=== PATIENT | female | born 1995 | race American Indian/Alaskan Native ===

== ENCOUNTER 2020-03-13 22:34 | Emergency (ER) | payer OTHER ==
[2020-03-13 23:42] VITALS: BP 130/69
[2020-03-14 00:08] LABS: Basophils % (Auto) 0.4 % (0.0-1.8); Eosinophils # (Auto) 0.1 K/mm3 (0.0-0.4); Eosinophils % (Auto) 1.9 % (0.0-4.3); Hematocrit 38.7 % (30.3-42.9); Hemoglobin 13.5 gm/dl (10.1-14.3); Lymphocytes # (Auto) 3.4 K/mm3 (1.2-5.4); Lymphocytes % (Auto) 44.5 % (13.4-35.0); Mean Corpuscular HGB Conc 35 % (30-34); Mean Corpuscular Volume 78 fl (79-97); Monocytes # (Auto) 0.4 K/mm3 (0.0-0.8); Monocytes % (Auto) 5.5 % (0.0-7.3); Platelet Count 292 K/mm3 (140-440); Red Blood Count 4.94 M/mm3 (3.65-5.03); Red Cell Distribution Width 15.2 % (13.2-15.2)
[2020-03-14 00:36] LABS: Alanine Aminotransferase 9 units/L (7-56); Albumin 4.3 g/dL (3.9-5); BUN/Creatinine Ratio 10; Blood Urea Nitrogen 8 mg/dL (7-17); Calcium 9.8 mg/dL (8.4-10.2); Hemolysis Index 95
[2020-03-14] MEDS ORDERED: ACETAMINOPHEN 500 MG TAB PO ONE (01:00)
[2020-03-14] MEDS ORDERED: FAMOTIDINE 20 MG TAB PO ONE (01:01)
[2020-03-14] MEDS ORDERED: ONDANSETRON 4 MG ODT TAB PO ONE (01:01)
[2020-03-14] MEDS ORDERED: DICYCLOMINE 20 MG TAB PO ONE (01:01)
[2020-03-14 01:58] LABS: Bacteria,Urine 1+ /HPF (Negative); Bilirubin,Urine NEG (Negative); Blood,Urine NEG (Negative); Color,Urine Yellow (Yellow); Mucus,Urine 2+ /HPF; Protein,Urine <15 mg/dL mg/dL (Negative)
--- NOTE | 2020-03-14 03:55 | Cat Scan Report ---
CT abdomen pelvis w con INDICATION / CLINICAL INFORMATION: Pt complains of R.L.Q. abdominal pain. TECHNIQUE: Axial CT imaging of abdomen and pelvis was obtained with IV contrast. Coronal and sagittal reformatte d imaging obtained and reviewed. All CT scans at this location are performed using CT dose reduction for ALARA by means of automated exposure control. COMPARISON: None available. FINDINGS: CT abdomen with contrast demonstrates normal appearance of the liver, spleen, pancreas, kidneys, adre nal glands, and gallbladder. No biliary dilatation. CT pelvis with contrast demonstrates normal appearance of the appendix. The uterus is enlarged. No fo elena uterine mass identified. No pelvic mass, free fluid, or focal inflammatory change noted. GI tract is grossly unremarkable. Visualized lung bases are clear. No acute significant skeletal abnormality noted. IMPRESSION: 1. No acute finding within the abdomen or pelvis. No evidence for appendicitis or right adnexal mass. 2. Uterus is mildly enlarged Signer Name: Coretta Lyons MD Signed: 03/14/2020 3:51 AM Workstation Name: [id number]
[2020-03-14] MEDS ORDERED: LIDOCAINE-MPF (1%) 10 MG/1 ML VIAL 5 ML INFILTRATI ONE (04:49)
[2020-03-14] MEDS ORDERED: AZITHROMYCIN 250 MG TAB PO ONE (04:49)
--- NOTE | 2020-03-14 04:54 | Emergency Department Report ---
ED Female HPI - General Chief complaint: Urogenital-Female Stated complaint: VAGINAL/ABD PAIN Source: patient Mode of arrival: Ambulatory Limitations: No Limitations - History of Present Illness Initial comments: Patient is a A0 24-year-old -[place] female with no past medical history presents to the ED with complaint of acute onset persistent diffuse lower abdominal pain with dysuria, urinary frequency and urgency and vaginal discharge for the last 3 days. Patient states that she suspects that she may have been exposed to STD after having unprotected sexual intercourse. Patient denies dizziness, syncope, fever, chills, nausea, vomiting, vaginal bleeding, low back pain, chest pain, shortness of breath, sore throat, cough, dyspareunia or diarrhea. MD Complaint: vaginal discharge, dysuria, pelvic pain, possible STD, other (Urinary frequency and urgency) -: days(s) (3) Location: suprapubic, other (vaginal) Radiation: LLQ, RLQ Severity: severe Severity scale (0 -10): 7 Quality: cramping, sharp Consistency: constant Improves with: none Worsens with: intercourse, movement Are you Now?: No Last Menstrual Period: 02/14/20 EDC: 11/20/20 Associated Symptoms: denies other symptoms, vaginal discharge, abdominal pain (Suprapubic pain), dysuria. denies: vaginal bleeding, nausea/vomiting, fever/ch ills, hematuria, rash, seizure, shortness of breath, syncope, weakness, other - Related Data Sexually active: Yes : 3 Para: 3 A: 0 Previous Rx's Medication Instructions Recorded Last Taken Type Ibuprofen [Motrin] 600 mg PO Q8H PRN #24 tablet 03/14/20 Unknown Rx Ondansetron [Zofran Odt] 4 mg PO Q6H PRN #15 tab.rapdis 03/14/20 Unknown Rx cephALEXin [Keflex] 500 mg PO Q8HR #30 cap 03/14/20 Unknown Rx Allergies Allergy/AdvReac Type Severity Reaction Status Date / Time hydrocodone AdvReac Shortness Verified 03/13/20 23:40 of Breath ED Review of Systems ROS: Stated complaint: VAGINAL/ABD PAIN Other details as noted in HPI Constitutional: denies: chills, fever Eyes: denies: eye pain, eye discharge, vision change ENT: denies: ear pain, throat pain Respiratory: denies: cough, shortness of breath, wheezing Cardiovascular: denies: chest pain, palpitations Endocrine: no symptoms reported Gastrointestinal: abdominal pain. denies: nausea, vomiting, diarrhea Genitourinary: urgency, dysuria, frequency, discharge Musculoskeletal: denies: back pain, joint swelling, arthralgia Skin: denies: rash, lesions Neurological: denies: headache, weakness, paresthesias Psychiatric: denies: anxiety, depression Hematological/Lymphatic: denies: easy bleeding, easy bruising ED Past Medical Hx - Past Medical History Previous Medical History?: No - Surgical History Past Surgical History?: No - Social History Smoking Status: Never Smoker - Medications Home Medications: Home Medications Medication Instructions Recorded Confirmed Last Taken Type Ibuprofen [Motrin] 600 mg PO Q8H PRN #24 tablet 03/14/20 Unknown Rx Ondansetron [Zofran Odt] 4 mg PO Q6H PRN #15 tab.rapdis 03/14/20 Unknown Rx cephALEXin [Keflex] 500 mg PO Q8HR #30 cap 03/14/20 Unknown Rx ED Physical Exam - General Limitations: No Limitations General appearance: alert, in no apparent distress - Head Head exam: Present: atraumatic, normocephalic, normal inspection - Eye Eye exam: Present: normal appearance, PERRL, EOMI Pupils: Present: normal accommodation - ENT ENT exam: Present: normal exam, normal orophraynx, mucous membranes moist, TM's normal bilaterally, normal external ear exam - Neck Neck exam: Present: normal inspection, full ROM - Respiratory Respiratory exam: Present: normal lung sounds bilaterally. Absent: respiratory distress, wheezes, rales, stridor, chest wall tenderness, accessory muscle use, decreased breath sounds, prolonged expiratory - Cardiovascular Cardiovascular Exam: Present: normal rhythm, bradycardia, normal heart sounds. Absent: systolic murmur, diastolic murmur, rubs, gallop - GI/Abdominal GI/Abdominal exam: Present: soft, tenderness (Palpable mild suprapubic and right lower quadrant tenderness), normal bowel sounds. Absent: guarding, rebound, hyperactive bowel sounds, organomegaly, mass - Bi-manual exam: Present: other (Pelvic exam deferred, patient preferred self swabbing) - Extremities Exam Extremities exam: Present: normal inspection, full ROM, normal capillary refill - Back Exam Back exam: Present: normal inspection, full ROM. Absent: tenderness, CVA tenderness (R), CVA tenderness (L), muscle spasm, paraspinal tenderness, vertebral tenderness - Neurological Exam Neurological exam: Present: alert, oriented X3, CN II-XII intact, normal gait, reflexes normal - Psychiatric Psychiatric exam: Present: normal affect, normal mood - Skin Skin exam: Present: warm, dry, intact, normal color. Absent: rash ED Course Vital Signs 03/13/20 23:41 Temperature 98.3 F Pulse Rate 51 L Respiratory 14 Rate Blood Pressure 130/69 [Right] O2 Sat by Pulse 99 Oximetry ED Medical Decision Making - Lab Data Result diagrams: 03/13/20 23:52 03/13/20 23:52 - Radiology Data Radiology results: report reviewed, image reviewed Findings [place] [id number] Cat Scan Report Signed Patient: KISHAN ZENDEJAS MR#: [id number] : 1995 Acct:[id number] Age/Sex: 24 / F ADM Date: 03/13/20 Loc: ED Attending Dr: Ordering Physician: CAROLE LALA Date of Service: 03/14/20 Procedure(s): CT abdomen pelvis w con Accession Number(s): [id number] cc: CAROLE LALA CT abdomen pelvis w con INDICATION / CLINICAL INFORMATION: Pt complains of R.L.Q. abdominal pain. TECHNIQUE: Axial CT imaging of abdomen and pelvis was obtained with IV contrast. Coronal and sagittal reformatted imaging obtained and reviewed. All CT scans at this location are performed using CT dose reduction for ALARA by means of automated exposure control. COMPARISON: None available. FINDINGS: CT abdomen with contrast demonstrates normal appearance of the liver, spleen, pancreas, kidneys, adrenal glands, and gallbladder. No biliary dilatation. CT pelvis with contrast demonstrates normal appearance of the appendix. The uterus is enlarged. No focal uterine mass identified. No pelvic mass, free fluid, or focal inflammatory change noted. GI tract is grossly unremarkable. Visualized lung bases are clear. No acute significant skeletal abnormality noted. IMPRESSION: 1. No acute finding within the abdomen or pelvis. No evidence for appendicitis or right adnexal mass. 2. Uterus is mildly enlarged Signer Name: Coretta Lyons MD Signed: 03/14/2020 3:51 AM Workstation Name: [id number] Transcribed By: Dictated By: Coretta Lyons MD Electronically Authenticated By: Coretta Lyons MD Signed Date/Time: 03/14/20350 DD/ 034 TD/TT: - Medical Decision Making This is a A0 24-year-old -[place] female with no past medical history presents to the ED with complaint of acute onset persistent diffuse lower abdominal pain with dysuria, urinary frequency and urgency and vaginal discharge for the last 3 days. Patient states that she suspects that she may have been exposed to STD after having unprotected sexual intercourse. In the ED, patient is alert and oriented x3 and is not in distress. Patient was treated in the ED for pain and also given antiemetics. Lab test results were reviewed and are all nonactionable except for urinalysis that showed significant urinary tract infection. The wet prep test was negative for trichomonas, Gardnerella vaginalis or Shasha. Chlamydia and gonorrhea test results are pending. Patient was empirically treated in the ED for gonorrhea and chlamydia and also UTI as well. Abdomen pelvis CT scan with contrast showed no acute abnormalities in the abdomen and pelvis. Patient was discharged home on medications for pain, antibiotics for UTI and antiemetics. Patient was advised to follow-up with her primary care physician in 5 to 7 days for reevaluation or return to the ED immediately if symptoms get worse. - Differential Diagnosis Appendicitis; kidney stone; ovarian cyst; UTI; PID; STD Critical care attestation.: If time is entered above; I have spent that time in minutes in the direct care of this critically ill patient, excluding procedure time. ED Disposition Clinical Impression: Acute bilateral lower abdominal pain, Acute urinary tract infection, Potential exposure to STD Disposition: DC-01 TO HOME OR SELFCARE Is pt being admited?: No Does the pt Need Aspirin: No Condition: Stable Instructions: Abdominal Pain, Adult, [id number], Urinary Tract Infection, Adult, [id number], Safe Sex Additional Instructions: All lab test results are unremarkable except for urinalysis that showed significant urinary tract infection. Abdomen pelvis CT scan with contrast showed no acute abnormalities. Therefore take medications with food, drink plenty of fluids and follow-up with your primary care physician in 5 to 7 days for reevaluation. Observe strict safe sexual practices. Return to the ED immediately if symptoms get worse. Prescriptions: cephALEXin [Keflex] 500 mg PO Q8HR #30 cap Ibuprofen [Motrin] 600 mg PO Q8H PRN #24 tablet PRN Reason: Pain Ondansetron [Zofran Odt] 4 mg PO Q6H PRN #15 tab.rapdis PRN Reason: Nausea Referrals: PRIMARY CARE, [Primary Care Provider] - 7-10 days [facility] [Provider Group] - 7-10 days Forms: Work/School Release Form(ED) Time of Disposition: 04:57 Print Language: ECUADOREAN
== END 2020-03-14 05:45 | disposition home or self-care (01) ==
LOC: ED 22:34
DX: N39.0 Urinary tract infection, site not specified (principal); R10.31 Right lower quadrant pain; R10.32 Left lower quadrant pain; Z20.2 Contact with and (suspected) exposure to infections with a predominantly sexual mode of transmission; Z79.1 Long term (current) use of non-steroidal anti-inflammatories (NSAID); Z79.899 Other long term (current) drug therapy; Z88.8 Allergy status to other drugs, medicaments and biological substances
CPT/HCPCS: 36415; 74177; 80053; 81001; 84703; 85025; 87086; 87210; 87591; 96372; 99284; J0696; Q9967; Q0162

== ENCOUNTER 2020-05-09 21:44 | Emergency (ER) | payer OTHER ==
[2020-05-09 21:52] VITALS: BP 148/74
--- NOTE | 2020-05-09 21:53 | Emergency Department Report ---
Blank Doc - Documentation Documentation: 24-year-old [place] female just emerged from complaining of a 9-day history of not improving vaginal bleeding spontaneously starting from unknown etiology associated with cramping soaking through several tampons in the course of the day but reports no trauma no fever chills sweats no nausea vomiting she reports no . The bleeding is occurring between menses and for some she is experience this type of episode This initial assessment/diagnostic orders/clinical plan/treatment(s) is/are subject to change based on patients health status, clinical progression and re- assessment by fellow clinical providers in the ED. Further treatment and workup at subsequent clinical providers discretion. Patient/guardian urged not to elope from the ED as their condition may be serious if not clinically assessed and managed. Initial orders include: Obtain CBC test and urine urinalysis depending on the outcome of the laboratory findings may move forward with an ultrasound
[2020-05-09 22:08] LABS: Basophils % (Auto) 0.3 % (0.0-1.8); Eosinophils # (Auto) 0.1 K/mm3 (0.0-0.4); Eosinophils % (Auto) 1.3 % (0.0-4.3); Hematocrit 30.1 % (30.3-42.9); Hemoglobin 10.4 gm/dl (10.1-14.3); Lymphocytes # (Auto) 3.6 K/mm3 (1.2-5.4); Lymphocytes % (Auto) 40.3 % (13.4-35.0); Mean Corpuscular HGB Conc 34 % (30-34); Mean Corpuscular Volume 76 fl (79-97); Monocytes # (Auto) 0.6 K/mm3 (0.0-0.8); Monocytes % (Auto) 6.6 % (0.0-7.3); Platelet Count 244 K/mm3 (140-440); Red Blood Count 3.97 M/mm3 (3.65-5.03); Red Cell Distribution Width 16.7 % (13.2-15.2)
[2020-05-10 00:17] LABS: Bilirubin,Urine NEG (Negative); Blood,Urine LG (Negative); Color,Urine Yellow (Yellow); Mucus,Urine 1+ /HPF
== END 2020-05-09 21:56 | disposition home or self-care (01) ==
LOC: ED 21:44
DX: R10.30 Lower abdominal pain, unspecified (principal)
CPT/HCPCS: 36415; 81001; 84702; 85025; 99283

== ENCOUNTER 2021-11-07 09:20 | Emergency (ER) | payer OTHER ==
[2021-11-07 10:51] VITALS: BP 112/38
--- NOTE | 2021-11-07 11:37 | Emergency Department Report ---
ED Headache HPI - General Chief Complaint: Headache Stated Complaint: HEADACHES X2 WEEKS MINOR SEIZURE Source: patient, RN notes reviewed Exam Limitations: no limitations - History of Present Illness Initial Comments: Patient is a 26-year-old -[place] female with no past medical history presents to the ED with complaint of acute onset persistent intractable occipital scalp pressure and headache for the last 3 weeks. Patient states that this headache has been persistent and intermittent, occasionally waxing and waning. Patient states that about 3 days ago she is suspected to have developed a seizure episode while sleeping as witnessed by her significant other. Patient states that the headache also presents with blurry vision. Patient states that she has taken ibuprofen 800 mg tablets which helped control the headache but the headache has been persistent especially in the last 5 days. Patient denies dizziness, syncope, chest pain or shortness of breath, nausea and vomiting, vision loss, traumatic injury, neck pain, shortness of breath, chest pain, fever and chills. Timing/Duration: constant, waxing and waning Quality: severe, pressure, sharp, throbbing Head Injury Location: occipital Recent Head Trauma: no recent headache/trauma Modifying Factors: improves with: medication Associated Symptoms: denies symptoms, vision changes (blurry vision). denies: confusion, fatigue, facial pain, fever/chills, flushing, loss of consciousness, nausea/vomiting, nasal congestion, nasal drainage, rash, seizures, sinus infection, stiff neck, weakness Allergies/Adverse Reactions: Allergies hydrocodone Adverse Reaction (Verified 03/13/20 23:40) Shortness of Breath Home Medications: Ambulatory Orders Ibuprofen [Motrin] 600 mg PO Q8H PRN #24 tablet 03/14/20 Ondansetron [Zofran Odt] 4 mg PO Q6H PRN #15 tab.rapdis 03/14/20 cephALEXin [Keflex] 500 mg PO Q8HR #30 cap 03/14/20 ED Review of Systems ROS: Stated complaint: HEADACHES X2 WEEKS MINOR SEIZURE Other details as noted in HPI Constitutional: denies: chills, fever Eyes: denies: eye pain, eye discharge, vision change ENT: denies: ear pain, throat pain Respiratory: denies: cough, shortness of breath, wheezing Cardiovascular: denies: chest pain, palpitations Endocrine: no symptoms reported Gastrointestinal: denies: abdominal pain, nausea, vomiting, diarrhea Genitourinary: denies: urgency, dysuria, discharge Musculoskeletal: denies: back pain, joint swelling, arthralgia Skin: denies: rash, lesions Neurological: headache (occipital). denies: weakness, paresthesias Psychiatric: denies: anxiety, depression Hematological/Lymphatic: denies: easy bleeding, easy bruising ED Past Medical Hx - Past Medical History Previous Medical History?: No - Surgical History Past Surgical History?: No - Social History Smoking Status: Never Smoker Substance Use Type: None - Medications Home Medications: Home Medications Medication Instructions Recorded Confirmed Last Taken Type Ibuprofen [Motrin] 600 mg PO Q8H PRN #24 tablet 03/14/20 Unknown Rx Ondansetron [Zofran Odt] 4 mg PO Q6H PRN #15 tab.rapdis 03/14/20 Unknown Rx cephALEXin [Keflex] 500 mg PO Q8HR #30 cap 03/14/20 Unknown Rx ED Physical Exam - General Limitations: No Limitations General appearance: alert, in no apparent distress - Head Head exam: Present: atraumatic, normocephalic, normal inspection - Eye Eye exam: Present: normal appearance, PERRL, EOMI Pupils: Present: normal accommodation - ENT ENT exam: Present: normal exam, normal orophraynx, mucous membranes moist, TM's normal bilaterally, normal external ear exam - Neck Neck exam: Present: normal inspection, full ROM. Absent: tenderness - Respiratory Respiratory exam: Present: normal lung sounds bilaterally. Absent: respiratory distress, wheezes, rales, rhonchi, chest wall tenderness, accessory muscle use, decreased breath sounds, prolonged expiratory - Cardiovascular Cardiovascular Exam: Present: regular rate, normal rhythm, normal heart sounds. Absent: systolic murmur, diastolic murmur, rubs, gallop - GI/Abdominal GI/Abdominal exam: Present: soft, normal bowel sounds. Absent: tenderness, guarding, hyperactive bowel sounds, hypoactive bowel sounds, organomegaly - Extremities Exam Extremities exam: Present: normal inspection, full ROM, normal capillary refill. Absent: tenderness - Back Exam Back exam: Present: normal inspection, full ROM. Absent: tenderness, CVA tenderness (R), CVA tenderness (L), muscle spasm, paraspinal tenderness, vertebral tenderness - Neurological Exam Neurological exam: Present: alert, oriented X3, CN II-XII intact, normal gait, reflexes normal - Psychiatric Psychiatric exam: Present: normal affect, normal mood - Skin Skin exam: Present: warm, dry, intact, normal color. Absent: rash ED Course Vital Signs 11/07/21 10:42 Temperature 98.7 F Pulse Rate 77 Respiratory 16 Rate Blood Pressure 112/38 [Right] O2 Sat by Pulse 100 Oximetry ED Medical Decision Making - Medical Decision Making This is a 26-year-old -[place] female with no past medical history presents to the ED with complaint of acute onset persistent intractable occipital scalp pressure and headache for the last 3 weeks. Patient states that this headache has been persistent and intermittent, occasionally waxing and waning. Patient states that about 3 days ago she is suspected to have developed a seizure episode while sleeping as witnessed by her significant other. Patient states that the headache also presents with blurry vision. Patient states that she has taken ibuprofen 800 mg tablets which helped control the headache but the headache has been persistent especially in the last 5 days. In the ED, patient is alert and oriented x3 and is not in any distress. Patient is hemodynamically stable. Head CT scan without contrast was ordered. Patient however decided to leave the ED AGAINST MEDICAL ADVICE before head CT scan without contrast could be performed. Patient however did not sign any paperwork. - Differential Diagnosis Tension headache; migraine headaches; cluster headache; seizures Critical care attestation.: If time is entered above; I have spent that time in minutes in the direct care of this critically ill patient, excluding procedure time. ED Disposition Clinical Impression: Acute tension-type headache Qualifiers: Intractability: not intractable Qualified Code(s): G44.209 - Tension-type headache, unspecified, not intractable Disposition: LEFT AGAINST MEDICAL ADVICE Is pt being admited?: No Does the pt Need Aspirin: No Condition: Undetermined Time of Disposition: 12:44 Print Language: EGYPTIAN
== END 2021-11-07 12:40 | disposition left against medical advice (07) ==
LOC: ED 09:20
DX: G44.209 Tension-type headache, unspecified, not intractable (principal); Z88.5 Allergy status to narcotic agent; Z79.899 Other long term (current) drug therapy
CPT/HCPCS: 99282

== ENCOUNTER 2021-11-23 07:22 | Emergency (ER) | payer OTHER ==
[2021-11-23] MEDS ORDERED: ACETAMINOPHEN 325 MG TAB PO ONE (07:54)
[2021-11-23 09:53] VITALS: BP 110/56
--- NOTE | 2021-11-23 11:04 | XRay Report ---
XR chest routine 2V INDICATION / CLINICAL INFORMATION: chest pain. COMPARISON: None available. FINDINGS: SUPPORT DEVICES: None. HEART /PULMONARY VASCULATURE: No significant abnormality. LUNGS / PLEURA: No significant pulmonary or pleural abnormality. No pneumothorax. ADDITIONAL FINDINGS: No significant additional findings. IMPRESSION: 1. No acute findings. Signer Name: Oswaldo Emmanuel MD Signed: 11/23/2021 11:00 AM Workstation Name: [id number]
--- NOTE | 2021-11-23 11:24 | Emergency Department Report ---
ED General Adult HPI - General Chief complaint: Pain General Stated complaint: BODY PAIN X 1 DAY Source: patient, EMS Mode of arrival: Stretcher Limitations: No Limitations - History of Present Illness Initial comments: 26-year-old male presents to the ED complaining of generalized body ache fever, nausea x2 days. Patient states she is not vaccinated to the COVID-vaccine. Patient patient is alert and oriented x3. Patient denies chest pain or shortness of breath. No acute distress. Not ill appearance noted. Patient states taking lnfd-kki-eikifnx medication without any relief. Severity scale (0 -10): 10 - Related Data Previous Rx's Medication Instructions Recorded Last Taken Type Ibuprofen [Motrin] 600 mg PO Q8H PRN #24 tablet 03/14/20 Unknown Rx Ondansetron [Zofran Odt] 4 mg PO Q6H PRN #15 tab.rapdis 03/14/20 Unknown Rx cephALEXin [Keflex] 500 mg PO Q8HR #30 cap 03/14/20 Unknown Rx Ibuprofen [Motrin] 400 mg PO Q8H PRN 15 Days #30 11/23/21 Unknown Rx tablet Promethazine [Phenergan] 25 mg PO Q6HR PRN 15 Days #30 tab 11/23/21 Unknown Rx Allergies Allergy/AdvReac Type Severity Reaction Status Date / Time hydrocodone AdvReac Shortness Verified 11/23/21 07:42 of Breath ED Review of Systems ROS: Stated complaint: BODY PAIN X 1 DAY Other details as noted in HPI Constitutional: denies: chills, fever Eyes: denies: eye pain, eye discharge, vision change ENT: denies: ear pain, throat pain Respiratory: denies: cough, shortness of breath, wheezing Cardiovascular: denies: chest pain, palpitations Endocrine: no symptoms reported Gastrointestinal: denies: abdominal pain, nausea, diarrhea Genitourinary: denies: urgency, dysuria, discharge Musculoskeletal: denies: back pain, joint swelling, arthralgia Skin: denies: rash, lesions Neurological: denies: headache, weakness, paresthesias Psychiatric: denies: anxiety, depression Hematological/Lymphatic: denies: easy bleeding, easy bruising ED Past Medical Hx - Past Medical History Previous Medical History?: No - Surgical History Past Surgical History?: No - Social History Smoking Status: Never Smoker Substance Use Type: None - Medications Home Medications: Home Medications Medication Instructions Recorded Confirmed Last Taken Type Ibuprofen [Motrin] 600 mg PO Q8H PRN #24 tablet 03/14/20 Unknown Rx Ondansetron [Zofran Odt] 4 mg PO Q6H PRN #15 tab.rapdis 03/14/20 Unknown Rx cephALEXin [Keflex] 500 mg PO Q8HR #30 cap 03/14/20 Unknown Rx Ibuprofen [Motrin] 400 mg PO Q8H PRN 15 Days #30 11/23/21 Unknown Rx tablet Promethazine [Phenergan] 25 mg PO Q6HR PRN 15 Days #30 tab 11/23/21 Unknown Rx ED Physical Exam - General Limitations: No Limitations General appearance: alert, in no apparent distress - Head Head exam: Present: atraumatic, normocephalic - Eye Eye exam: Present: normal appearance - ENT ENT exam: Present: mucous membranes moist - Neck Neck exam: Present: normal inspection - Respiratory Respiratory exam: Present: normal lung sounds bilaterally. Absent: respiratory distress - Cardiovascular Cardiovascular Exam: Present: regular rate, normal rhythm. Absent: systolic murmur, diastolic murmur, rubs, gallop - GI/Abdominal GI/Abdominal exam: Present: soft, normal bowel sounds - Extremities Exam Extremities exam: Present: normal inspection - Back Exam Back exam: Present: normal inspection - Neurological Exam Neurological exam: Present: alert, oriented X3 - Psychiatric Psychiatric exam: Present: normal affect, normal mood - Skin Skin exam: Present: warm, dry, intact, normal color. Absent: rash ED Course Vital Signs 11/23/21 11/23/21 07:39 09:51 Temperature 102.4 F H 99.5 F Pulse Rate 100 H 56 L Respiratory 15 16 Rate Blood Pressure 123/71 110/56 [Left] O2 Sat by Pulse 98 100 Oximetry ED Medical Decision Making - Radiology Data [facility] [address] [place] [address] XRay Report Signed Patient: KISHAN ZENDEJAS MR#: [id number] : 1995 Acct:[id number] Age/Sex: 26 / F ADM Date: 11/23/21 Loc: ED Attending Dr: Ordering Physician: RAJENDRA SANTIZO Date of Service: 11/23/21 Procedure(s): XR chest routine 2V Accession Number(s): [id number] cc: TAMI Schultz RAJENDRA HALL Fluoro Time In Minutes: XR chest routine 2V INDICATION / CLINICAL INFORMATION: chest pain. COMPARISON: None available. FINDINGS: SUPPORT DEVICES: None. HEART /PULMONARY VASCULATURE: No significant abnormality. LUNGS / PLEURA: No significant pulmonary or pleural abnormality. No pneumothorax. ADDITIONAL FINDINGS: No significant additional findings. IMPRESSION: 1. No acute findings. Signer Name: Madelyn Emmanuel MD Signed: 11/23/2021 11:00 AM Workstation Name: [id number] Transcribed By: KAMLESH Dictated By: MADELYN EMMANUEL MD Electronically Authenticated By: MADELYN EMMANUEL MD Signed Date/Time: 11/23/21 1100 DD/ 1059 TD/TT: Print Cancel - Medical Decision Making 26-year-old male presents to the ED complaining of generalized body ache fever, nausea x2 days. Patient states she is not vaccinated to the COVID-vaccine. Patient patient is alert and oriented x3. Patient denies chest pain or shortness of breath. No acute distress. Not ill appearance noted. Patient states taking pijk-wcc-vfgciow medication without any relief. Physical examination is unremarkable. 2 chest x-ray showed no abnormality. Rechecked the patient is resting quietly , comfortable and feeling better. I di scussed the results of diagnostic study, my clinical impression and the plan for further treatment with the patient. Patient agrees with plan and discharge at this present time. All question addressed. I have given the patient instruction regarding a diagnosis ,expectation ,follow- up and return precaution. I explained to the patient that emergent condition may arise and to return to the ED for new worsen and any new persisting condition. I have explained the importance of following up with the primary care physician or referral physician listed below has instructed. The patient verbalized und erstanding of discharge instruction. Critical care attestation.: If time is entered above; I have spent that time in minutes in the direct care of this critically ill patient, excluding procedure time. ED Disposition Clinical Impression: Exposure to COVID-19 virus Disposition: HOME / SELF CARE / HOMELESS Is pt being admited?: No Does the pt Need Aspirin: No Condition: Stable Instructions: COVID-19 Frequently Asked Questions, COVID-19: How to Protect Yourself and Others - [facility]AMED [facility] Additional Instructions: Your symptoms appear most consistent with a nonspecific viral syndrome. However, given this current pandemic, COVID-19 is in the differential of possibilities. Despite your previous negative COVID-19 test, I do recommend repeat outpatient Covid 19 testing. In the meantime, isolate/quarantine yourself and stay away from anyone who is elderly, immunocompromised or chronically ill. You can use ibuprofen every 6-8 hours and Tylenol every 4-8 hours, using the dosing on the back of the bottle, as needed for any fever or body aches. Return to the emergency department with any worsening of your symptoms, development of chest pain or shortness of breath, or with any acute distress. Prescriptions: Ibuprofen [Motrin] 400 mg PO Q8H PRN 15 Days #30 tablet PRN Reason: Pain, Mild (1-3) Promethazine [Phenergan] 25 mg PO Q6HR PRN 15 Days #30 tab PRN Reason: Nausea Referrals: [facility] [Provider Group] - 3-5 Days Forms: Work/School Release Form(ED) Time of Disposition: 11:28
== END 2021-11-23 11:51 | disposition home or self-care (01) ==
LOC: ED 07:22
DX: R50.9 Fever, unspecified (principal); R11.0 Nausea; Z20.822 Contact with and (suspected) exposure to COVID-19; Z91.09 Other allergy status, other than to drugs and biological substances
CPT/HCPCS: 71046; 99283